=== PATIENT | female | born 1945 | race Caucasian/White ===

== ENCOUNTER 2020-07-08 09:01 | Inpatient (IN) | payer MEDICARE, OTHER ==
[~2020-07-08] VITALS: Ht 160 cm; Wt 60.0 kg
[2020-07-08 10:23] LABS: HEMOGLOBIN 8.8 g/dl (12.0-16.0); RED BLOOD COUNT 2.83 X10'6 (4.20-5.60)
[2020-07-08 10:24] LABS: HEMATOCRIT 26.7 % (35.0-45.0); MEAN CORPUSCULAR HEMOGLOBIN 31.2 PG (27.0-31.0); MEAN CORPUSCULAR HGB CONC 33.1 g/dL (33.0-36.5); MEAN CORPUSCULAR VOLUME 94.4 FL (78-98); MEAN PLATELET VOLUME 8.9 FL (7.4-10.4); PLATELET COUNT 102 X10'3 (140-440); RED CELL DISTRIBUTION WIDTH 18.9 % (11.5-14.5)
[2020-07-08 10:33] LABS: WHITE BLOOD COUNT 0.5 X10'3 (4.5-11.0)
[2020-07-08 10:37] LABS: ALANINE AMINOTRANSFERASE 32 U/L (12-78); ALBUMIN/GLOBULIN RATIO 1.1 (1.1-1.5); ALKALINE PHOSPHATASE 82 IU/L (46-116); ANION GAP 7 (8-16); ASPARTATE AMINO TRANSFERASE 23 U/L (10-37); BILIRUBIN,TOTAL 0.5 MG/DL (0.1-1.0); BLOOD UREA NITROGEN 29 MG/DL (7-18); BUN/CREATININE RATIO 38.2 (6.6-38.0); CALCIUM 8.7 MG/DL (8.5-10.1); CHLORIDE 107 MMOL/L (99-107); CREATININE 0.76 MG/DL (0.40-0.90); GLUCOSE 120 MG/DL (70-104); SODIUM 143 MMOL/L (135-145); TOTAL CARBON DIOXIDE 29.1 MMOL/L (24-32); TOTAL PROTEIN 5.8 G/DL (6.4-8.2); eGFR 75 ML/MIN
[2020-07-08 10:55] LABS: LARGE PLATELETS FEW; PLATELET ESTIMATE DECREASED; TOTAL CELLS COUNTED 100
[2020-07-08 10:56] LABS: ANISOCYTOSIS 2+
[2020-07-08] MEDS ORDERED: normal saline 1000ML IV soln IVB ONE (12:40)
[2020-07-08 12:52] LABS: CLARITY,URINE CLEAR (Clear); COLOR,URINE YELLOW (Yellow); GLUCOSE, URINE NEGATIVE (Neg); KETONES,URINE NEGATIVE (Neg); LEUKOCYTE ESTERASE ,URINE NEGATIVE (Neg); NITRITES, URINE NEGATIVE (Neg); OCCULT BLOOD,URINE NEGATIVE (Neg); PROTEIN,URINE NEGATIVE (Neg); UROBILINOGEN,URINE 0.2 E.U/dL (0.2-1.0)
[2020-07-08 12:53] LABS: UA COLLECTION TYPE CLN CATCH MIDSTREAM
[2020-07-08 12:55] LABS: PARTIAL THROMBOPLASTIN TIME 25 SECONDS (22-32)
--- NOTE | 2020-07-08 14:13 | NUR ---
PT TI NUC MED VIA WHEELCHAIR.
[2020-07-08] MEDS ORDERED: ondansetron/PF 4mg/2ml inj IV PRN (15:20)
[2020-07-08] MEDS ORDERED: magnesium Cl slow-release 64mg tablet PO PRN (15:20)
[2020-07-08] MEDS ORDERED: magnesium 4gm in 100ml NS 100 ML IV PRN (15:20)
[2020-07-08] MEDS ORDERED: mag hydrox/Alum hydrox/simeth 30ml oral suspension PO PRN (15:20)
[2020-07-08] MEDS ORDERED: magnesium hydroxide 30ml (MOM) UD suspension PO PRN (15:20)
[2020-07-08] MEDS ORDERED: acetaminophen 325mg tablet PO PRN (15:20)
[2020-07-08] MEDS ORDERED: potassium Cl 40MEQ/1/2NS 520ml 520 ML IV PRN ×2 (15:20)
[2020-07-08] MEDS ORDERED: diphenhydrAMINE 25mg capsule PO PRN (15:20)
[2020-07-08] MEDS ORDERED: potassium Cl 20 mEq SR tablet PO PRN (15:20)
[2020-07-08] MEDS ORDERED: acetaminophen 650mg rectal suppository RC PRN (15:20)
[2020-07-08] MEDS ORDERED: magnesium 2GM in 50ml NS 50 ML IV PRN (15:20)
[2020-07-08 15:40] LABS: HEMOGLOBIN A1C 6.3 % (4.5-6.2)
--- NOTE | 2020-07-08 16:13 | NUR ---
PT BACK FROM [facility].
[2020-07-08] MEDS: TBO-filgrastim 300 MCG/0.5 ML inj. SQ SCH (16:14)
[2020-07-08] MEDS: dextrose 5%-normal saline 1,000 ML IV SCH (16:18)
[2020-07-08] MEDS ORDERED: HYDR-3972 PO (16:20)
[2020-07-08] MEDS ORDERED: GABA300C PO (16:20)
[2020-07-08] MEDS ORDERED: HYDR12.55 PO (16:20)
[2020-07-08] MEDS ORDERED: DOCU100C40 PO (16:20)
[2020-07-08] MEDS ORDERED: LISI40TA13 PO (16:20)
[2020-07-08] MEDS ORDERED: EZET10TA6 PO (16:20)
[2020-07-08 20:00] VITALS: BP 159/74
[2020-07-08] MEDS: K and/or MAG REPLACEMENT MC SCH (20:00)
[2020-07-08] MEDS: lisinopril 20mg tablet PO SCH (20:47)
[2020-07-08] MEDS: gabapentin 300mg capsule PO SCH (20:47)
[2020-07-08] MEDS: pantoprazole 40 MG vial IV SCH (20:47)
[2020-07-08] MEDS: HYDROcodone/acetaminophen 10/325mg tab PO PRN ×2 (20:48→20:55)
[2020-07-08 22:00] VITALS: BP 112/60
[2020-07-09 02:00] VITALS: BP 91/47
[2020-07-09] MEDS: dextrose 5%-normal saline 1,000 ML IV SCH ×2 (04:40→20:17)
[2020-07-09 06:00] VITALS: BP 149/82
[2020-07-09 07:05] LABS: HEMOGLOBIN 8.2 g/dl (12.0-16.0); PLATELET COUNT 105 X10'3 (140-440)
[2020-07-09 07:07] LABS: HEMATOCRIT 24.4 % (35.0-45.0); MEAN CORPUSCULAR HEMOGLOBIN 31.2 PG (27.0-31.0); MEAN CORPUSCULAR HGB CONC 33.5 g/dL (33.0-36.5); MEAN CORPUSCULAR VOLUME 93.1 FL (78-98); MEAN PLATELET VOLUME 8.7 FL (7.4-10.4); RED BLOOD COUNT 2.63 X10'6 (4.20-5.60); RED CELL DISTRIBUTION WIDTH 17.8 % (11.5-14.5)
[2020-07-09 07:16] LABS: WHITE BLOOD COUNT 0.9 X10'3 (4.5-11.0)
[2020-07-09 07:29] LABS: ALANINE AMINOTRANSFERASE 30 U/L (12-78); ALBUMIN 2.6 G/DL (3.4-5.0); ALBUMIN/GLOBULIN RATIO 1.1 (1.1-1.5); ALKALINE PHOSPHATASE 75 IU/L (46-116); ANION GAP 7 (8-16); ASPARTATE AMINO TRANSFERASE 19 U/L (10-37); BILIRUBIN,TOTAL 0.6 MG/DL (0.1-1.0); BLOOD UREA NITROGEN 18 MG/DL (7-18); BUN/CREATININE RATIO 27.7 (6.6-38.0); CALCIUM 7.9 MG/DL (8.5-10.1); CHLORIDE 112 MMOL/L (99-107); CHOL/HDL RATIO 2.9 (0.00-4.99); CHOLESTEROL 187 MG/DL (0-200); CREATININE 0.65 MG/DL (0.40-0.90); GLUCOSE 92 MG/DL (70-104); HDL CHOLESTEROL 65 MG/DL (35-60); LDL CHOLESTEROL 106 MG/DL (50-100); MAGNESIUM 1.8 MG/DL (1.5-2.4); PHOSPHORUS 2.6 MG/DL (2.3-4.5); POTASSIUM 3.8 MMOL/L (3.5-5.1); SODIUM 145 MMOL/L (135-145); TOTAL CARBON DIOXIDE 26.5 MMOL/L (24-32); TRIGLYCERIDES 86 MG/DL (20-135); eGFR 89 ML/MIN
[2020-07-09] MEDS: pantoprazole 40 MG vial IV SCH (07:29)
[2020-07-09] MEDS: HYDROchlorothiazide 12.5mg capsule PO SCH (07:29)
[2020-07-09] MEDS: ezetimibe 10mg tablet PO SCH (07:29)
[2020-07-09] MEDS: K and/or MAG REPLACEMENT MC SCH ×2 (07:30→20:00)
[2020-07-09 09:14] LABS: NUCLEATED RED BLOOD CELLS 3 /100WBC (0-0); TOTAL CELLS COUNTED 100
[2020-07-09 09:15] LABS: ANISOCYTOSIS 2+; HYPOCHROMASIA 1+; PLATELET ESTIMATE DECREASED; POLYCHROMASIA FEW
[2020-07-09] MEDS: HYDROcodone/acetaminophen 5mg/325mg tablet PO PRN ×2 (09:55→16:54)
[2020-07-09] MEDS: TBO-filgrastim 300 MCG/0.5 ML inj. SQ SCH (10:05)
[2020-07-09 11:09] VITALS: BP 111/45
[2020-07-09] MEDS ORDERED: PEG 3350/Na sulf,bicarb,Cl/KCl oral sol 4 liter bottle PO ONE (17:00)
[2020-07-09 18:00] VITALS: BP 115/71
[2020-07-09] MEDS: pantoprazole 40mg Tablet.DR PO SCH (20:16)
[2020-07-09] MEDS: gabapentin 300mg capsule PO SCH (20:16)
[2020-07-09] MEDS: lisinopril 20mg tablet PO SCH (20:17)
[2020-07-09 22:00] VITALS: BP 121/68
[2020-07-09] MEDS ORDERED: HYDROcodone/acetaminophen 5mg/325mg tablet PO ONE (22:45)
[2020-07-10] VITALS (11 sets, daily range): BP systolic 93–124; BP diastolic 44–72
--- NOTE | 2020-07-10 06:21 | NUR ---
Patient in room PCU 3020. I have received report from Ananda SIMPSON and had the opportunity to ask questions and assume patient care.
[2020-07-10 07:35] LABS: MEAN CORPUSCULAR HEMOGLOBIN 31.4 PG (27.0-31.0)
[2020-07-10 07:38] LABS: HEMATOCRIT 27.3 % (35.0-45.0); MEAN CORPUSCULAR VOLUME 95.1 FL (78-98); MEAN PLATELET VOLUME 8.6 FL (7.4-10.4); PLATELET COUNT 160 X10'3 (140-440); RED BLOOD COUNT 2.87 X10'6 (4.20-5.60); RED CELL DISTRIBUTION WIDTH 18.5 % (11.5-14.5); WHITE BLOOD COUNT 8.9 X10'3 (4.5-11.0)
[2020-07-10 07:56] LABS: ALANINE AMINOTRANSFERASE 46 U/L (12-78); ALKALINE PHOSPHATASE 111 IU/L (46-116); ANION GAP 10 (8-16); ASPARTATE AMINO TRANSFERASE 35 U/L (10-37); BILIRUBIN,TOTAL 0.6 MG/DL (0.1-1.0); BLOOD UREA NITROGEN 7 MG/DL (7-18); BUN/CREATININE RATIO 9.9 (6.6-38.0); CALCIUM 8.1 MG/DL (8.5-10.1); CHLORIDE 111 MMOL/L (99-107); CREATININE 0.71 MG/DL (0.40-0.90); GLUCOSE 92 MG/DL (70-104); MAGNESIUM 1.8 MG/DL (1.5-2.4); POTASSIUM 3.4 MMOL/L (3.5-5.1); SODIUM 146 MMOL/L (135-145); TOTAL CARBON DIOXIDE 25.2 MMOL/L (24-32); TOTAL PROTEIN 5.9 G/DL (6.4-8.2); eGFR 81 ML/MIN
[2020-07-10] MEDS: K and/or MAG REPLACEMENT MC SCH ×2 (08:00→20:00)
[2020-07-10] MEDS: TBO-filgrastim 300 MCG/0.5 ML inj. SQ SCH (08:50)
[2020-07-10] MEDS: ezetimibe 10mg tablet PO SCH (08:51)
[2020-07-10] MEDS: pantoprazole 40mg Tablet.DR PO SCH ×2 (08:51→19:10)
[2020-07-10] MEDS: HYDROchlorothiazide 12.5mg capsule PO SCH (08:51)
[2020-07-10] MEDS: potassium Cl 20 mEq SR tablet PO PRN ×3 (08:51→21:03)
[2020-07-10] MEDS: HYDROcodone/acetaminophen 5mg/325mg tablet PO PRN ×2 (08:52→19:11)
[2020-07-10] MEDS: dextrose 5%-normal saline 1,000 ML IV SCH (08:53)
[2020-07-10 10:24] LABS: NUCLEATED RED BLOOD CELLS 3 /100WBC (0-0); PLATELET ESTIMATE NORMAL; TOTAL CELLS COUNTED 100
[2020-07-10 10:25] LABS: ANISOCYTOSIS 2+; HYPOCHROMASIA 1+; POLYCHROMASIA FEW
[2020-07-10] MEDS ORDERED: MIDAZolam 1 MG/ML 5ML VIAL ONE (12:17)
[2020-07-10] MEDS ORDERED: fentaNYL/PF 50MCG/1 ML 2ML syringe ONE (12:17)
--- NOTE | 2020-07-10 14:50 | NUR ---
Paged Dr. Elizabeth regarding pts procedure will advance diet as tolerated. PAGER ID: [phone] MESSAGE: Re: Mckenzie Limon RM [id number]. FYI pt is back no bleeding found. Thank you Ebony SIMPSON [phone]
--- NOTE | 2020-07-10 17:05 | NUR ---
Dr. Elizabeth on the phone. New orders DC IV fluids and advance diet to [facility] for dinner. Pt most likely to go home tomorrow. Will continue to monitor.
--- NOTE | 2020-07-10 18:05 | NUR ---
Problems reprioritized. Patient report given, questions answered & plan of care reviewed with Ananda SIMPSON.
[2020-07-10] MEDS: gabapentin 300mg capsule PO SCH (19:10)
[2020-07-10] MEDS: lisinopril 20mg tablet PO SCH (19:11)
[2020-07-11 02:00] VITALS: BP 100/49
[2020-07-11 06:00] VITALS: BP 110/54
--- NOTE | 2020-07-11 06:26 | NUR ---
Patient in room PCU 3017. I have received report from Ananda SIMPSON and had the opportunity to ask questions and assume patient care.
--- NOTE | 2020-07-11 06:28 | NUR ---
Patient in room PCU 3017. I have received report from Ananda SIMPSON and had the opportunity to ask questions and assume patient care.
[2020-07-11 06:39] LABS: EOSINOPHILS # (AUTO) 0.2 X10'3 (0-0.9); EOSINOPHILS % (AUTO) 0.5 % (0-6); HEMOGLOBIN 7.9 g/dl (12.0-16.0); MEAN CORPUSCULAR VOLUME 94.2 FL (78-98)
[2020-07-11 06:42] LABS: BASOPHILS # (AUTO) 0.1 X10'3 (0-0.2); BASOPHILS % (AUTO) 0.3 % (0-1); HEMATOCRIT 24.2 % (35.0-45.0); LYMPHOCYTES # (AUTO) 1.3 X10'3 (1.1-4.8); LYMPHOCYTES % (AUTO) 3.7 % (21-51); MEAN CORPUSCULAR HEMOGLOBIN 30.6 PG (27.0-31.0); MEAN CORPUSCULAR HGB CONC 32.5 g/dL (33.0-36.5); MEAN PLATELET VOLUME 8.3 FL (7.4-10.4); MONOCYTES # (AUTO) 2.1 X10'3 (0-0.9); MONOCYTES % (AUTO) 6.1 % (2-12); NEUTROPHILS # (AUTO) 31.2 X10'3 (1.8-7.7); NEUTROPHILS % (AUTO) 89.4 % (42-75); PLATELET COUNT 182 X10'3 (140-440); RED BLOOD COUNT 2.57 X10'6 (4.20-5.60)
[2020-07-11 06:59] LABS: WHITE BLOOD COUNT 34.9 X10'3 (4.5-11.0)
--- NOTE | 2020-07-11 07:01 | NUR ---
notified Dr Red of critical lab value WBC count of 34.9
[2020-07-11 07:27] LABS: ALANINE AMINOTRANSFERASE 32 U/L (12-78); ALBUMIN 2.6 G/DL (3.4-5.0); ALKALINE PHOSPHATASE 120 IU/L (46-116); ANION GAP 10 (8-16); ASPARTATE AMINO TRANSFERASE 28 U/L (10-37); BILIRUBIN,TOTAL 0.3 MG/DL (0.1-1.0); BLOOD UREA NITROGEN 7 MG/DL (7-18); CHLORIDE 113 MMOL/L (99-107); CREATININE 0.88 MG/DL (0.40-0.90); GLUCOSE 87 MG/DL (70-104); MAGNESIUM 1.8 MG/DL (1.5-2.4); PHOSPHORUS 1.9 MG/DL (2.3-4.5); POTASSIUM 3.9 MMOL/L (3.5-5.1); SODIUM 146 MMOL/L (135-145); TOTAL CARBON DIOXIDE 23.5 MMOL/L (24-32); TOTAL PROTEIN 5.1 G/DL (6.4-8.2); eGFR 63 ML/MIN
[2020-07-11] MEDS: TBO-filgrastim 300 MCG/0.5 ML inj. SQ SCH (08:00)
[2020-07-11] MEDS: K and/or MAG REPLACEMENT MC SCH (08:00)
[2020-07-11 08:34] LABS: NUCLEATED RED BLOOD CELLS 3 /100WBC (0-0); TOTAL CELLS COUNTED 100
[2020-07-11 08:35] LABS: ANISOCYTOSIS 2+; PLATELET ESTIMATE NORMAL
[2020-07-11 08:36] LABS: HYPOCHROMASIA 1+; POLYCHROMASIA 1+; SCHISTOCYTES 1+; TOXIC GRANULATION 1+
[2020-07-11] MEDS: HYDROcodone/acetaminophen 5mg/325mg tablet PO PRN (08:58)
[2020-07-11] MEDS: HYDROchlorothiazide 12.5mg capsule PO SCH (08:58)
[2020-07-11] MEDS: ezetimibe 10mg tablet PO SCH (08:58)
[2020-07-11] MEDS: pantoprazole 40mg Tablet.DR PO SCH (08:59)
[2020-07-11 11:00] VITALS: BP 107/54
[2020-07-11] MEDS ORDERED: PANT40TA54 PO (11:10)
--- NOTE | 2020-07-11 12:14 | NUR ---
[facility] documentation: I have reviewed and agree with interventions, assessments performed and documented by Yesenia SIMPSON. [facility] Medication Administration: For this medication-pass time frame, medication were reviewed, dispensed, administered and documented per hospital policy by Yesenia SIMPSON.
--- NOTE | 2020-07-11 12:19 | NUR ---
Patient was discharged home at 1205. Patient reviewed discharge packet before signing, all belongings were sent home with pt. PIV was removed with cannula intact, tele monitoring was d/c'd, medications were faxed to pharmacy. Patient alert and appropriate and was wheeled down by staff and left via private vehicle with sister.
== END 2020-07-11 12:05 | disposition home or self-care (01) | DRG 379 ==
LOC: ER 09:01 → ED HOLD 15:17 → PCU 3S 19:20
PROVIDERS: ADMIT Family Medicine; ATTEND Family Medicine
PROC: C713YZZ Planar Nuclear Medicine Imaging of Blood using Other Radionuclide (ICD-10-PCS; 2020-07-08)
PROC: 0DJD8ZZ Inspection of Lower Intestinal Tract, Via Natural or Artificial Opening Endoscopic (ICD-10-PCS; principal; 2020-07-10)
DX: K57.31 Diverticulosis of large intestine without perforation or abscess with bleeding (principal); D70.9 Neutropenia, unspecified; E78.5 Hyperlipidemia, unspecified; D64.9 Anemia, unspecified; M54.32 Sciatica, left side; I10 Essential (primary) hypertension; G89.29 Other chronic pain; K62.5 Hemorrhage of anus and rectum; D69.6 Thrombocytopenia, unspecified; C50.911 Malignant neoplasm of unspecified site of right female breast; Z79.891 Long term (current) use of opiate analgesic; Z80.0 Family history of malignant neoplasm of digestive organs; Z80.42 Family history of malignant neoplasm of prostate; Z92.21 Personal history of antineoplastic chemotherapy; Z88.8 Allergy status to other drugs, medicaments and biological substances; Z88.2 Allergy status to sulfonamides; Z88.5 Allergy status to narcotic agent
CPT/HCPCS: 36415; 45378; 74176; 78278; 80053; 80061; 81003; 83036; 83735; 84100; 85007; 85025; 85610; 85730; 86885; 86900; 86901; 87081; 97161; 97530; 99152; 99153; 99285; A4620; A9560; C9113; G0378; J1442; J2250; J3010; J7030; J7040; J7042